=== PATIENT | female | born 1960 | race Caucasian/White ===

== ENCOUNTER → 2016-11-25 | Day surgery (SDC) | payer OTHER ==
[2016-11-25] VITALS (10 sets, daily range): BP systolic 146–183; BP diastolic 89–108; PULSE 67–85; RESP 13–24; O2SAT 96–99
[~2016-11-25] VITALS: Ht 167.6 cm; Wt 71.5 kg
[~2016-11-25] MED LIST: ACET-2766 PO; ACYC400T2 PO; ALBU18HF INH; AZEL137S11 NS; Atropine 0.4 mg/mL Inj IVPUSH PRN; BECL8.7A6 INHALATION; BUSP15TA3 PO; CHOL5000 PO; CYAN1TAB47 PO; CeFAZolin Inj 2 GM in IV Premix 1 EACH IV SCH; Dexamethasone 4 mg/mL Inj ONE; EPHEDrine Sulfate 50 mg/mL Inj IVPUSH PRN; GABA600T2 PO; Glycopyrrolate 0.2 MG/ML 1mL Inj ONE; HYDR25TA4 PO; HYDROcodone-APAP 5-325 mg Tablet PO PRN; HYDROmorphone 0.5 mg/0.5 mL iSecure Syringe ONE; HYDROmorphone 1 mg/mL Inj IVPUSH PRN; HYDROmorphone 1 mg/mL Inj ONE; Ketorolac 15 mg/mL Inj IVPUSH ONE; LIDO5CRE17 TOPICAL; Labetalol 5 mg/mL 20 mL Inj IV PRN; Lactated Ringer's 1,000 ML IV SCH; Lactated Ringer's 500 ML IV PRN; METH-313 PO; MULT-1018 PO; MetoCLOpramide 5 mg/mL 2 mL Inj IVPUSH PRN; Ondansetron 2 mg/mL 2 mL Inj IVPUSH PRN; Ondansetron 2 mg/mL 2 mL Inj ONE; Phenylephrine 10,000 mCg/mL Inj IVPUSH PRN; Propofol 10,000 mCg/mL 20 mL Inj ONE; QUET200T PO; Ropivacaine-PF 0.5% 30 mL Inj INFILTRATE ONE; TURM500C7 PO; [UNRECOGNIZED DRUG - OTHER]; fentaNYL-PF 50 mCg/mL 2 mL Inj IVPUSH PRN; fentaNYL-PF 50 mCg/mL 2 mL Inj ONE; ibuprofen; oxyCODONE-Acetamin 5-325 mg Tablet PO ONE
--- NOTE | 2016-11-25 08:40 | PCM.HPANE ---
Patient Data Surgeon Admitting Provider: Attending Provider:Sonny Ruvalcaba MD Primary Care Physician:Francisco Brothers PA-C Other Provider:Franck Olivares Anesthesia Reason for Visit Right Knee Acl Tear Ht/WT & BMI Height (Feet): 5 Height (Inches): 7 Weight (Kilograms): 74.39 Body Mass Index 25.00 Allergies Coded Allergies: hydrocortisone (Verified Allergy, Unknown, 11/17/16) neomycin (Verified Allergy, Unknown, 11/17/16) Past Anesthesia History Anesthesia History: Denies:: Abnormal Airway, Anesthesia Reactions, Difficult Intubation, Fam Anesthesia Reaction, Fam Malignant Hypertherm, Malignant Hyperthermia Diabetes History Hx Diabetes?: No MRSA MRSA: No Medications Hypertension Medication: Yes Home Meds Incl Beta Gregory: No Reported Medications Cholecalciferol (Vitamin D3) (Vitamin D3)5,000 Unit Capsule5,000 Unit PO DAILY 11/17/16 Quetiapine Fumarate (Seroquel)200 Mg Povqem595 Mg PO HS Ref 0 11/17/16 Multivitamin (Multi Vitamin Daily)1 Each Tablet1 Each PO DAILY 30 Days Ref 0 11/17/16 Cyanocobalamin/Folic Acid (Mtx Support Tablet)1 Each Tablet1 Each PO DAILY 11/17/16 [5 mtfr folate] No Conflict CheckUnknown Dose DAILY 11/17/16 Turmeric Root Extract (Turmeric)500 Mg Mpfarpm870 Mg PO DAILY 11/17/16 [ibuprofen] No Conflict CheckUnknown Dose DAILY pt states she is taking this "by the handfuls" dealing with chronic pain issues- weaning off narcotic- aware of daily mg recommendations 11/17/16 Acetaminophen (Tylenol Arthritis)650 Mg Tablet.erUnknown Dose PO DAILY pt states she is taking this "by the handfuls" aware of daily mg dose limit- trying to deal with chronic pain issue 11/17/16 Buspirone 15 Mg Yttebi84 Mg PO BID Ref 0 11/17/16 Methocarbamol (Robaxin-750)750 Mg Tablet1-2 Mg PO Q6H PRN For Pain 11/17/16 Beclomethasone Dipropionate (Qvar)8.7 Gm Aer.w.adap2 Puff INHALATION BID #8.7 GM 11/17/16 Lidocaine Cream 5 Gm Cream..g.1 Applic TOPICAL BID PRN For Pain 11/17/16 Hydrochlorothiazide 25 Mg Bavfui71 Mg PO DAILY 30 Days Ref 0 11/17/16 Gabapentin 600 Mg Baebcp410 Mg PO TID Ref 0 11/17/16 Azelastine HCl 137 Mcg/0.137 Ml [place].pump2 Sprays NS BID 11/17/16 Albuterol Sulfate (Ventolin HFA Inhaler)200 Puff/18 Gm Inhaler1-2 Puff INH Q4 PRN For Wheezing #1 INHALER Ref 0 11/17/16 Acyclovir 400 Mg Vqvitv511 Mg PO Q8H PRN outbreak Ref 0 for 5 day course 11/17/16 History History of ENT Problems?: No HEENT History: Denies:: Abnormal Airway Cataracts Difficult Intubation Dysphagia Glaucoma Hearing Problem Sinus Problem Denture Type: Full- Upper Teeth Condition: Within Normal Limits Hx of Heart Problems?: Yes Cardiovascular History: Positive for:: Heart Murmur (worked up negative) Hypertension Valvular Heart Disease (echo ef 62% 10/29) Denies:: Abdominal Aortic Aneurism Chest Pain Congestive Heart Failure Coronary Artery Disease Edema Hx of Respiratory Problem?: Yes Respiratory History: Positive for:: Asthma Use of Inhalers / NEBS Denies:: Oxygen Administration Pneumonia Tuberculosis Use of C-PAP Machine Hx Neurologic Problems?: No Neurological History: Denies:: CVA Headaches Multiple Sclerosis Parkinson's Disease Seizures Hx of GI Problems?: Yes Hx of Problems?: No Female Hx: Positive for:: Problems with Breasts? (hx of left breast bx- benign ) Denies:: Currently (clif menopausal ) Skin History: Denies:: History Skin Disorders? Pressure Ulcers Hx Musculoskeletal Problems?: Yes Musculoskeletal History: Positive for:: Back Injury (sciatica- left hip ) Degenerative Joint Musculoskeletal Trauma (right knee current admission problem) Osteoarthritis Denies:: Fibromyalgia Joint Replacement Systemic Lupus Psycho Social History: Positive for:: Anxiety Bipolar Disorder Hx Depression Hx Surgeries?: Yes (Carpal tunnel x2,and C-Sections, LEEP, breast bx) Hx Any Other Health Problems?: Yes Other History: Denies:: Cancer Thyroid Disease History Blood Transfusions: Positive for:: Accept Blood Products? Denies:: Blood Transfusions Hx Diabetes: No Hx Alcohol Use: NoHx Substance Use: Yes (smoke, edible, topical daily) Smoking Status: Former Smoker Have You Smoked inLast 12 mo: No Stop/Bang P-Blood Pressure: treated: Yes B- Body Mass Index > 35 kg/m2: No A- Age over 50: Yes N- Neck Large Circumference: No G- Gender Male: No Risk Assessment Category Category 1A: Patient has history of documented sleep apnea, and HAS NOT received any narcotic, sedative or anesthesia administration during this stay. Category 1B: Patient has history of documented sleep apnea, and HAS received any narcotic , sedative or anesthesia administration during this stay Category 2: Patient has SUSPECTED Obstructive Sleep Apnea, and HAS received any narcotic , sedative or anesthesia administration during this stay. Category 3: Patient has SUSPECTED Obstructive Sleep Apnea and HAS NOT received narcotic, sedative or anesthesia administration during this stay. Category 4: Outpatient in Procedural Areas with known sleep apnea or who screen positive for High Risk via the STOP/BANG questionnaire. Plan Impression Patient chart reviewed, patient interviewed and anesthestic plan with risks, benefits, and alternatives discussed, and informed consent obtained. Dequan Mi MD Nov 25, 2016 08:40
[2016-11-25] MEDS: Lactated Ringer's 1,000 ML IV SCH ×2 (11:26→12:18)
--- NOTE | 2016-11-25 11:44 | PCM.ORTHOP ---
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 Without the qualified media assistant being present, it would have extended the operative procedure and made the procedure technically more difficult to perform. INDICATIONS: The patient is Sofia Espino who is a 56-year-old female patient with a prolonged history of right knee giving way. The patient has had continued episodes of instability. The patient has restored their range of motion and is now brought to the operating room for ACL reconstruction, possible partial medial and lateral meniscectomy versus medial and lateral meniscal repair, chondroplasty and debridement. The risks, benefits, and alternatives of surgery were discussed with the patient. The risks included but were not limited to infection, bleeding, damage to vessels and nerves, loss of motion, continued pain, re-tear of the meniscus, deep venous thrombosis, and complications due to anesthesia including nerve injury, myocardial infarction, stroke, , etc. The patient stated understanding of the nature of the surgical procedure and gave written and verbal consent to proceed. PROCEDURE: The patient was brought to the operating room and placed supine on the operating room table. General anesthesia was induced and adductor block was placed. The right lower extremity was examined under anesthesia. Range of motion was 0 degrees of hyperextension to 135 degrees of flexion. There was no varus or valgus or posterolateral instability. The patient had no instability to varus at 0 or 30 degrees.There was 1+ laxity with valgus with firm endpoint. The patient had a 2+ Víctor and drawer with a positive pivot shift. The right lower extremity was then prepped and draped in the usual fashion. A tourniquet was placed proximally on the thigh over a bias stockinette. A standard anterolateral parapatellar stab wound was created. The knee joint was entered with a blunt-tipped obturator, followed by the 30-degree video arthroscope. An anteromedial portal was established under arthroscopic control. A routine arthroscopic survey was performed. The suprapatellar pouch was unremarkable. The undersurface of the patella demonstrated grade 2/3 chondromalacia which was debrided with the shaver. The patella appeared to track centrally within the trochlear groove. The medial and lateral gutters were inspected and there was no loose body seen. There was no hypertrophied plica. The popliteal hiatus was entered and was unremarkable. The lateral compartment was entered. The articular surfaces of the lateral femoral condyle was largely well maintained. There was no chondromalacia adjacent to the notch. There was no chondromalacia along the central aspect of the weight bearing lateral tibial plateau. The lateral meniscus demonstrated degenerative fraying to the body and anterior horn which was debrided with the shaver. The intercondylar notch was visualized. The anterior cruciate ligament was torn from it's femoral origin. There was an empty lateral wall. Posteromedially there was no loose body seen. The posterior cruciate ligament was visualized and appeared intact. Moderate synovitis was noted anteriorly in the medial and lateral compartment and debrided with a shaver. The medial compartment was entered. The articular surfaces of the medial femoral condyle and medial tibial plateau were visualized. There was no chondromalacia noted on the medial femoral condyle, and no chondromalacia noted on the medial tibial plateau. The medial meniscus was visualized and appeared intact and was stable to probing. Moderate synovitis was noted anteriorly in the medial and lateral compartment and debrided with a shaver. Attention was turned to reconstruction of the anterior cruciate ligament. Following exsanguination with an Esmarch bandage the tourniquet was inflated to 250 mm of mercury. Using a motorized shaver a notchplasty was performed, exposing the lateral wall and roof of the notch, identifying the yilk-[id number]-ywh position. The stump of the anterior cruciate ligament was debrided. An Arthrex guide was placed intra-articularly between the tibial spines in line with the anterior horn of the lateral meniscus. A Leonardo wire was then inserted into the knee through a 2 cm incision made over the proximal medial tibia. The incision was deepened through the subcutaneous tissue with subperiosteal dissection achieved. Bleeding points were coagulated with the Bovie electrocautery. A fresh frozen tibialis allograft was opened and prepared at the back table, accommodating a 9 mm graft on the femoral side and 9 mm graft on the tibial side. Tibial drilling was then carried out first with a 5 mm followed by a 9 mm cylindrical reamer with the guide set at 55 degrees. The Beath pin was drilled out the femoral cortex and skin. The femoral tunnel was then created, with an Arthrex flipcutter. Depth-gauging confirmed a tunnel length of 40 mm. An Arthrex EndoButton was selected. The graft was inserted intra- articularly and the EndoButton was deployed. The graft was cycled for 17 cycles with 25 pounds of force to pre-load the graft. Tibial fixation was carried out using a 8-10 PEEK Intra-Fix in 10 degrees of flexion with a posterior drawer. At the completion of surgery the patient had a firm stable Víctor. The patient had a 0 firm Víctor and a negative pivot shift. There was no evidence for any roof or lateral wall impingement. The knee was irrigated with two liters of lactated Ringer's solution. Excess fluid was drained. The tibial wounds were then copiously irrigated with bacitracin solution and closed in layers with #0, #2-0 and #3-0 Vicryl. The skin was reapproximated with #4-0 Monocryl. The knee was injected with 20 cc of 0.5% plain ropivacaine and 4 mg of Duramorph. A dry sterile dressing was applied, followed by a bulky bandage and DINH stocking. A postoperative TROM brace was applied locked in full extension. The patient was awakened in the Operating Room and transported to the Recovery Room in satisfactory condition. The patient appeared to tolerate the procedure well. At the completion of surgery the patient had soft compartments, palpable pulses, and brisk capillary refill. There were no complications noted. Please keep dressing clean dry and intact. Do not remove dressing until follow- up in clinic. If the dressing become soaked, you may remove the outer gauze and placed Band-Aids on the wounds. You may weight-bear as tolerated with the brace on at all times. Do Not Bend Your Knee. You may place a pillow under your heel and NOT your knee. You will follow up in clinic in 10-14 days for suture removal, and placement of new Steri-Strips. You will follow-up with me in clinic, and we will start physical therapy. You will follow-up with my me every 6 weeks while you progress in your rehab and will be released once cleared by PT around 9-12 months. Please see me prior to full release. Please keep the affected extremity elevated when possible. Please take aspirin as instructed if prescribed. You will take antibiotics 4 times daily for 3 days. You may use ice and/or heat as needed for comfort. (preferably ice during the first 48-72 hours)Please feel free to call with any further questions, comments , and/or concerns. Grafts, Implants: Implants-See Implant Record Complications There were no periprocedural complications identified. Condition Stable Anesthetic Administered: GA Catheters: None Output, Estimated Blood Loss: 10 Blood Admin during surgery: No Surgical Cast or Splint: Other Surgical Specimen Removed: No Specimen sent to Pathology: No copies to: Sonny Ruvalcaba MD, Christopher L MD Nov 25, 2016 11:44 Sonny Ruvalcaba MD Nov 25, 2016 11:44
--- NOTE | 2016-11-25 14:30 | PCM.ANEP1 ---
Post Anesthesia PACU Phase 1 Assessment Vital Signs Vital Signs Date Time Temp Pulse Resp B/P Pulse Ox O2 Delivery O2 Flow Rate FiO2 11/25/16 14:15 36.3 74 13 163/90 98 Room Air 11/25/16 14:10 72 21 153/89 97 Room Air 11/25/16 14:05 36.3 75 19 155/92 96 Room Air 11/25/16 14:00 75 15 160/99 98 Room Air 11/25/16 13:55 76 15 183/108 98 Room Air 11/25/16 13:51 73 14 175/103 98 Room Air 11/25/16 13:45 80 24 174/102 99 Room Air 11/25/16 13:41 36.1 80 17 171/100 96 Room Air 11/25/16 11:42 36.0 67 16 146/98 96 Room Air Anesthetic Administered: GA Level of Alertness: Awake, talking CHAUDHARY's with Equal Strength: Yes Pain: No Nausea or Vomiting: No CV Function & Hydration Stable: Yes Airway Device: Oxygen Delivery: Simple Mask Lungs: Clear to Auscultation, Clear to Percussion PACU Phase 2 Assessment Complications: No Follow up Care: No Patient Instructions Provided: N/A Raciel Luna MD Nov 25, 2016 14:30
== END | disposition home or self-care (01) ==
LOC: SAS 11:08
PROVIDERS: ATTEND Orthopaedic Surgery
DX: S83.511D Sprain of anterior cruciate ligament of right knee, subsequent encounter (principal); M22.41 Chondromalacia patellae, right knee; M23.261 Derangement of other lateral meniscus due to old tear or injury, right knee; M65.862 Other synovitis and tenosynovitis, left lower leg; I10 Essential (primary) hypertension; J45.909 Unspecified asthma, uncomplicated; M19.90 Unspecified osteoarthritis, unspecified site; F41.9 Anxiety disorder, unspecified; F31.9 Bipolar disorder, unspecified; Z87.891 Personal history of nicotine dependence; X58.XXXA Exposure to other specified factors, initial encounter; Y92.9 Unspecified place or not applicable; Y99.9 Unspecified external cause status; Y93.9 Activity, unspecified; Z79.899 Other long term (current) drug therapy; Z79.51 Long term (current) use of inhaled steroids